=== PATIENT | male | born 1975 | race Caucasian/White ===

== ENCOUNTER 2023-12-14 19:27 | Emergency (ER) | payer OTHER, SELFPAY ==
[2023-12-14 19:32] VITALS: BP 168/116; PULSE 79; RESP 18; TEMP 36.3; O2SAT 98; BMI 30.4
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
[2023-12-14] MEDS: METHYLPREDNISOLONE SOD SUCC PF 125 MG/2 ML VIAL IM (21:03)
[2023-12-14] MEDS: KETOROLAC TROMETHAMINE 60 MG/2 ML VIAL IM (21:03)
[2023-12-14] MEDS: PREDNISONE 20 MG TABLET 60 MG PO (21:04)
[2023-12-14] MEDS: METHOCARBAMOL 500 MG TABLET 1000 MG PO (21:04)
[2023-12-14] MEDS: HYDROCODONE/ACET 5-325 MG TABLET 1 TAB PO (21:05)
== END 2023-12-14 21:45 | disposition home or self-care (01) ==
PROVIDERS: Emergency Provider Internal Medicine; PCP Internal Medicine
DX: S39.012A Strain of muscle, fascia and tendon of lower back, initial encounter (principal); Z79.82 Long term (current) use of aspirin; Z79.899 Other long term (current) drug therapy; X58.XXXA Exposure to other specified factors, initial encounter
CPT/HCPCS: 96372; 99284; J1885; J2930; J7512